=== PATIENT | female | born 1975 | race Caucasian/White ===

== ENCOUNTER 2018-08-22 09:23 | Emergency (ER) | payer MEDICAID ==
[2018-08-22] MEDS: KETOROLAC 30 MG INJ IM (10:57)
== END 2018-08-22 12:31 | disposition home or self-care (01) ==
LOC: FTE 09:23
DX: S29.012A Strain of muscle and tendon of back wall of thorax, initial encounter (principal); J45.909 Unspecified asthma, uncomplicated; R07.9 Chest pain, unspecified; X58.XXXA Exposure to other specified factors, initial encounter; Y92.9 Unspecified place or not applicable
CPT/HCPCS: 71046; 81025; 93005; 96372; 99284-25